=== PATIENT | female | born 1980 | race Hispanic/Latino ===

== ENCOUNTER 2019-05-04 10:56 | Emergency (ER) | payer SELFPAY ==
[2019-05-04 11:12] VITALS: BP 109/61
--- NOTE | 2019-05-04 11:29 | Emergency Department Report ---
ED ENT HPI - General Chief complaint: Dental/Oral Stated complaint: FACE SWOLLEN/PAIN Time Seen by Provider: 05/04/19 11:25 Source: patient Mode of arrival: Ambulatory Limitations: No Limitations - History of Present Illness Initial comments: This is a 38-year-old female nontoxic well in appearance with no signs of distress presents to the ED with complaint of toothache. Patient denies any facial swelling. Denies following up with a dentist. Denies any fever, chills, headache, nausea, vomiting, chest pain or SOB. Denies any other complaints. De nies any allergies. MD complaint: tooth pain -: days(s) Location: tooth # 1 - pain Severity: mild Severity scale (0 -10): 8 Quality: aching Consistency: constant Improves with: none Worsens with: none Context- Dental: history of dental caries, poor dental care Associated Symptoms: gum swelling, toothache. denies: fever, cough, pain with swallowing, sore throat, tinnitus, hearing loss, discharge from ear, rhinorrhea - Related Data Previous Rx's Medication Instructions Recorded Last Taken Type Acetaminophen/Codeine [Tylenol 1 tab PO Q6H PRN #12 tab 05/04/19 Unknown Rx /Codeine # 3 tab] Clindamycin [Clindamycin CAP] 300 mg PO Q8H #21 cap 05/04/19 Unknown Rx Allergies Allergy/AdvReac Type Severity Reaction Status Date / Time No Known Allergies Allergy Unverified 05/04/19 11:13 ED Dental HPI - General Chief complaint: Dental/Oral Stated complaint: FACE SWOLLEN/PAIN Time Seen by Provider: 05/04/19 11:25 Source: patient Mode of arrival: Ambulatory Limitations: No Limitations - Related Data Previous Rx's Medication Instructions Recorded Last Taken Type Acetaminophen/Codeine [Tylenol 1 tab PO Q6H PRN #12 tab 05/04/19 Unknown Rx /Codeine # 3 tab] Clindamycin [Clindamycin CAP] 300 mg PO Q8H #21 cap 05/04/19 Unknown Rx Allergies Allergy/AdvReac Type Severity Reaction Status Date / Time No Known Allergies Allergy Unverified 05/04/19 11:13 ED Review of Systems ROS: Stated complaint: FACE SWOLLEN/PAIN Other details as noted in HPI Constitutional: denies: chills, fever Eyes: denies: eye pain, eye discharge, vision change ENT: dental pain. denies: ear pain, throat pain Respiratory: denies: cough, shortness of breath, wheezing Cardiovascular: denies: chest pain, palpitations Endocrine: no symptoms reported Gastrointestinal: denies: abdominal pain, nausea, diarrhea Genitourinary: denies: urgency, dysuria, discharge Musculoskeletal: denies: back pain, joint swelling, arthralgia Skin: denies: rash, lesions Neurological: denies: headache, weakness, paresthesias Psychiatric: denies: anxiety, depression Hematological/Lymphatic: denies: easy bleeding, easy bruising ED Past Medical Hx - Past Medical History Previous Medical History?: No - Surgical History Past Surgical History?: No - Social History Smoking Status: Current Every Day Smoker Substance Use Type: None - Medications Home Medications: Home Medications Medication Instructions Recorded Confirmed Last Taken Type Acetaminophen/Codeine [Tylenol 1 tab PO Q6H PRN #12 tab 05/04/19 Unknown Rx /Codeine # 3 tab] Clindamycin [Clindamycin CAP] 300 mg PO Q8H #21 cap 05/04/19 Unknown Rx ED Physical Exam - General Limitations: No Limitations General appearance: alert, in no apparent distress - Head Head exam: Present: atraumatic, normocephalic - Expanded ENT Exam Expanded Ear exam: Present: normal external inspection Mouth exam: Present: normal external inspection. Absent: drooling, trismus, muffled voice Teeth exam: Present: dental caries, fractured tooth #, dental tenderness #, gingival enlargement, other (no facial swelling. no abscess) Throat exam: Positive: normal inspection. Negative: tonsillar erythema, tonsillomegaly, tonsillar exudate, R peritonsillar mass, L peritonsillar mass - Neck Neck exam: Present: normal inspection, full ROM. Absent: tenderness, meningismus, lymphadenopathy - Extremities Exam Extremities exam: Present: normal inspection, full ROM - Back Exam Back exam: Present: normal inspection, full ROM - Neurological Exam Neurological exam: Present: alert, oriented X3, normal gait - Psychiatric Psychiatric exam: Present: normal affect, normal mood - Skin Skin exam: Present: warm, dry, intact, normal color. Absent: rash ED Course Vital Signs 05/04/19 11:11 Temperature 98.8 F Pulse Rate 90 Respiratory 18 Rate Blood Pressure 109/61 O2 Sat by Pulse 100 Oximetry - Reevaluation(s) Reevaluation #1: 05/04/19 11:26 Patient is speaking in full sentences with no signs of distress noted. ED Medical Decision Making - Medical Decision Making Patient was instructed to Follow-up with a dentist doctor in 3-5 days or if symptoms worsen and continue return to emergency room as soon as possible. At time of discharge, the patient does not seem toxic or ill in appearance. No acute signs of distress noted. Patient agrees to discharge treatment plan of care. No further questions noted by the patient. Critical care attestation.: If time is entered above; I have spent that time in minutes in the direct care of this critically ill patient, excluding procedure time. ED Disposition Clinical Impression: Dental caries, Gingivitis Disposition: TO HOME OR SELFCARE Is pt being admited?: No Does the pt Need Aspirin: No Condition: Stable Instructions: Dental Caries (ED), Gingivitis (ED), Acetaminophen/Codeine (By mouth) Additional Instructions: Follow-up with a dentist doctor in 3-5 days or if symptoms worsen and continue return to emergency room as soon as possible. Prescriptions: Clindamycin [Clindamycin CAP] 300 mg PO Q8H #21 cap Acetaminophen/Codeine [Tylenol /Codeine # 3 tab] 1 tab PO Q6H PRN #12 tab PRN Reason: Pain , Severe (7-10) [facility] [Primary Care Provider[facility] - 3-5 Days PRIMARY MD FREYA [Referring] - 3-5 Days EDISON CARBALLO MD [Staff Physician] - 3-5 Days [facility] [Outside] - 3-5 Days [facility] [Outside] - 3-5 Days Forms: Work/School Release Form(ED)
[2019-05-04] MEDS ORDERED: TYLENOL #3 ONE (11:36)
[2019-05-04] MEDS ORDERED: TYLENOL #3 PO ONE (11:38)
== END 2019-05-04 11:40 | disposition home or self-care (01) ==
LOC: ED 10:56
DX: K02.9 Dental caries, unspecified (principal); K05.10 Chronic gingivitis, plaque induced; F17.200 Nicotine dependence, unspecified, uncomplicated; Z79.899 Other long term (current) drug therapy
CPT/HCPCS: 99282

== ENCOUNTER 2019-05-06 16:15 | Emergency (ER) | payer SELFPAY ==
--- NOTE | 2019-05-06 16:32 | Event Note ---
ED Screening Note ED Screening Note: dental pain here 48 hours ago This initial assessment/diagnostic orders/clinical plan/treatment(s) is/are s ubject to change based on patients health status, clinical progression and re- assessment by fellow clinical providers in the ED. Further treatment and workup at subsequent clinical providers discretion. Patient/guardian urged not to elope from the ED as their condition may be serious if not clinically assessed and managed. Initial orders include: ro abscess
[2019-05-06 16:58] LABS: Hematocrit 37.6 % (30.3-42.9); Hemoglobin 12.9 gm/dl (10.1-14.3); Mean Corpuscular HGB Conc 34 % (30-34); Mean Corpuscular Volume 98 fl (79-97); Platelet Count 309 K/mm3 (140-440); Red Blood Count 3.86 M/mm3 (3.65-5.03); Red Cell Distribution Width 12.5 % (13.2-15.2)
[2019-05-06 17:01] LABS: HCG Qualitative,Urine Negative (Negative)
[2019-05-06 17:03] LABS: Bilirubin,Urine NEG (Negative); Blood,Urine NEG (Negative); Color,Urine Yellow (Yellow); Protein,Urine <15 mg/dL mg/dL (Negative); Urobilinogen,Urine < 2.0 mg/dL (<2.0)
[2019-05-06 17:12] LABS: BUN/Creatinine Ratio 16; Blood Urea Nitrogen 11 mg/dL (7-17); Calcium 9.4 mg/dL (8.4-10.2); Hemolysis Index 4
[2019-05-06] MEDS ORDERED: NORCO 7.5/325 PO ONE (17:51)
--- NOTE | 2019-05-06 17:52 | Emergency Department Report ---
ED ENT HPI - General Chief complaint: Dental/Oral Stated complaint: JAW SWELLING /PAIN Time Seen by Provider: 05/06/19 16:31 Source: patient Mode of arrival: Ambulatory Limitations: No Limitations - History of Present Illness Initial comments: This is a 38-year-old female who presents to the emergency room with worsening dental pain. Patient states she was seen in this emergency room 2 days ago and started on antibiotics and pain medication with no improvement of symptoms. She was given a list of emergency dental clinics and unsuccessful with scheduling an appointment. She reports dental swelling around numbers 30 and 31 with worsening pain. She denies difficulty swallowing, drooling, or fever. MD complaint: tooth pain Onset/Timin -: week(s) Location: tooth # (30 & 31) Severity: severe Severity scale (0 -10): 10 Quality: stabbing, constant Consistency: constant Improves with: none Worsens with: eating Context- Dental: history of dental caries, poor dental care Associated Symptoms: gum swelling, toothache. denies: fever, cough, pain with swallowing, sore throat, tinnitus, hearing loss, discharge from ear, rhinorrhea - Related Data Previous Rx's Medication Instructions Recorded Last Taken Type Acetaminophen/Codeine [Tylenol 1 tab PO Q6H PRN #12 tab 05/04/19 Unknown Rx /Codeine # 3 tab] Clindamycin [Clindamycin CAP] 300 mg PO Q8H #21 cap 05/04/19 Unknown Rx Allergies Allergy/AdvReac Type Severity Reaction Status Date / Time No Known Allergies Allergy Verified 05/06/19 16:33 ED Dental HPI - General Chief complaint: Dental/Oral Stated complaint: JAW SWELLING /PAIN Time Seen by Provider: 05/06/19 16:31 Source: patient Mode of arrival: Ambulatory Limitations: No Limitations - Related Data Previous Rx's Medication Instructions Recorded Last Taken Type Acetaminophen/Codeine [Tylenol 1 tab PO Q6H PRN #12 tab 05/04/19 Unknown Rx /Codeine # 3 tab] Clindamycin [Clindamycin CAP] 300 mg PO Q8H #21 cap 05/04/19 Unknown Rx Allergies Allergy/AdvReac Type Severity Reaction Status Date / Time No Known Allergies Allergy Verified 05/06/19 16:33 ED Review of Systems ROS: Stated complaint: JAW SWELLING /PAIN Other details as noted in HPI Constitutional: denies: chills, fever ENT: dental pain. denies: ear pain, throat pain Respiratory: denies: cough, shortness of breath, wheezing Cardiovascular: denies: chest pain, palpitations Gastrointestinal: denies: abdominal pain, nausea, diarrhea Neurological: denies: headache, weakness, paresthesias Psychiatric: denies: anxiety, depression ED Past Medical Hx - Past Medical History Previous Medical History?: No - Surgical History Past Surgical History?: No - Social History Smoking Status: Current Every Day Smoker Substance Use Type: None - Medications Home Medications: Home Medications Medication Instructions Recorded Confirmed Last Taken Type Acetaminophen/Codeine [Tylenol 1 tab PO Q6H PRN #12 tab 05/04/19 Unknown Rx /Codeine # 3 tab] Clindamycin [Clindamycin CAP] 300 mg PO Q8H #21 cap 05/04/19 Unknown Rx ED Physical Exam - General Limitations: No Limitations General appearance: alert, in no apparent distress - ENT ENT exam: Present: normal orophraynx, mucous membranes moist, TM's normal bilaterally, normal external ear exam - Expanded ENT Exam Expanded Mouth exam: Present: tongue normal. Absent: drooling, trismus, muffled voice, tongue elevation, laceration Teeth exam: Present: dental caries, fractured tooth # (31), dental tenderness # (#30 and 31), gingival enlargement (palpable cyst pocket) Throat exam: Positive: normal inspection - Respiratory Respiratory exam: Present: normal lung sounds bilaterally. Absent: respiratory distress - Cardiovascular Cardiovascular Exam: Present: regular rate, normal rhythm. Absent: systolic murmur, diastolic murmur, rubs, gallop - GI/Abdominal GI/Abdominal exam: Present: soft, normal bowel sounds - Neurological Exam Neurological exam: Present: alert, oriented X3 - Expanded Neurological Exam Expanded Patient oriented to: Present: person, place, time Speech: Present: fluid speech Cranial nerves: EOM's Intact: Normal, Gag Reflex: Normal, Tongue Deviation: Normal, Nystagmus: Normal, Facial Sensation: Normal, Facial Palsy with Forehead Movement: Normal, Facial Palsy without Forehead Movement: Normal Cerebellar function: Finger to Nose: Normal Best Eye Response ([place]): (4) open spontaneously Best Motor Response ([place]): (6) obeys commands Best Verbal Response ([place]): (5) oriented [place] Total: 15 - Psychiatric Psychiatric exam: Present: normal affect, normal mood - Skin Skin exam: Present: warm, dry, intact, normal color. Absent: rash ED Course Vital Signs 05/06/19 05/06/19 16:30 22:25 Temperature 99.1 F Pulse Rate 88 83 Respiratory 14 20 Rate Blood Pressure 113/58 116/60 [Right] O2 Sat by Pulse 98 96 Oximetry ED Medical Decision Making - Lab Data Result diagrams: 05/06/19 16:41 05/06/19 16:41 Lab Results 05/06/19 05/06/19 05/06/19 Range/Units 16:41 16:41 16:49 WBC 7.8 (4.5-11.0) K/mm3 RBC 3.86 (3.65-5.03) M/mm3 Hgb 12.9 (10.1-14.3) gm/dl Hct 37.6 (30.3-42.9) % MCV 98 H (79-97) fl MCH 34 H (28-32) pg MCHC 34 (30-34) % RDW 12.5 L (13.2-15.2) % Plt Count 309 (140-440) K/mm3 Sodium 146 H (137-145) mmol/L Potassium 4.1 (3.6-5.0) mmol/L Chloride 104.1 (98-107) mmol/L Carbon Dioxide 30 (22-30) mmol/L Anion Gap 16 mmol/L BUN 11 (7-17) mg/dL Creatinine 0.7 (0.7-1.2) mg/dL Estimated GFR > 60 ml/min BUN/Creatinine Ratio 16 % Glucose 95 (65-100) mg/dL Calcium 9.4 (8.4-10.2) mg/dL Urine Color Yellow (Yellow) Urine Turbidity Clear (Clear) Urine pH 5.0 (5.0-7.0) Ur Specific [place] 1.015 (1.003-1.030) Urine Protein <15 mg/dl (Negative) mg/dL Urine Glucose (UA) Neg (Negative) mg/dL Urine Ketones Neg (Negative) mg/dL Urine Blood Neg (Negative) Urine Nitrite Neg (Negative) Ur Reducing Substances Not Reportable Urine Bilirubin Neg (Negative) Urine Ictotest Not Reportable Urine Urobilinogen < 2.0 (<2.0) mg/dL Ur Leukocyte Esterase Tr (Negative) Urine WBC (Auto) 1.0 (0.0-6.0) /HPF Urine RBC (Auto) 3.0 (0.0-6.0) /HPF U Epithel Cells (Auto) 10.0 (0-13.0) /HPF Urine HCG, Qual Negative (Negative) - Radiology Data Radiology results: report reviewed CT maxillofacial without contrast CLINICAL HISTORY: Right facial pain for 5 days. FINDINGS: No previous exams available for comparison. There is lucency surrounding the root of the anterior right mandibular molar tooth with defect of the lateral cortex. Furthermore, there is de creased attenuation within the adjacent soft tissues measure approximately 0.7 cm transverse by 1.0 cm AP in greatest dimensions. The findings would be a concerning for developing odontogenic abscess on this noncontrast study at. Milder inflammatory changes are seen within the more superficial soft tissues. The paranasal sinuses are pneumatized. The nasal septum is essentially midline at. No significant post septal inflammatory changes are seen involving the orbits. The visualized mastoid air cells are clear. All CT scans at this location are performed using the CT dose reduction for ALARA by means of automated exposure control. IMPRESSION: There is lucency surrounding the anterior right mandibular molar tooth with defect of the lateral cortex and decreased attenuation involving the adjacent soft tissues. The findings would be concerning for developing odontogenic abscess as detailed above. - Medical Decision Making Patient is stable and was examined by me. Patient was seen in this emergency room 2 days ago started on antibiotics and pain medication for dental pain. Giv en norco once in ER. Obtain CT of facial bones. There is lucency surrounding the anterior right mandibular molar tooth with defect of the lateral cortex and decreased attenuation involving the adjacent soft tissues. The findings would be concerning for developing odontogenic abscess as detailed a jonathon. Dental abscess drained, review note. Referral to dentist for follow-up. Struck transit continue to prescribe pain medication, mouthwash, and antibiotics from 2 days ago. Discharged home stable. Critical care attestation.: If time is entered above; I have spent that time in minutes in the direct care of this critically ill patient, excluding procedure time. ED Disposition Clinical Impression: Dental caries, Dental abscess Disposition: DC- TO HOME OR SELFCARE Is pt being admited?: No Does the pt Need Aspirin: No Condition: Stable Instructions: Dental Abscess (ED) Additional Instructions: Follow-up from a dentist from the referral list below her continued management. Complete antibiotics prescribed on prior visit 2 days ago. He continue to take pain medication prescribed. Referrals: [facility] [Outside] - 3-5 Days [facility] [Outside] - 3-5 Days [facility] [Outside] - 3-5 Days Forms: Work/School Release Form(ED) Time of Disposition: 22:23 I & D Note - I & D Note I & D Note: The area was prepared and draped in the usual, sterile manner. A 18 gauge blunt needle was used to puncture indurated area on #31 and gingival area and the purulent material expressed. Bleeding was minimal. Followup: The patient tolerated the procedure well without complications. Standard post- procedure care was explained and return precautions are given.
--- NOTE | 2019-05-06 21:14 | Cat Scan Report ---
CT maxillofacial without contrast CLINICAL HISTORY: Right facial pain for 5 days. FINDINGS: No previous exams available for comparison. There is lucency surrounding the root of the an terior right mandibular molar tooth with defect of the lateral cortex. Furthermore, there is decrease d attenuation within the adjacent soft tissues measure approximately 0.7 cm transverse by 1.0 cm AP i n greatest dimensions. The findings would be a concerning for developing odontogenic abscess on this noncontrast study at. Milder inflammatory changes are seen within the more superficial soft tissues. The paranasal sinuses are pneumatized. The nasal septum is essentially midline at. No significant pos t septal inflammatory changes are seen involving the orbits. The visualized mastoid air cells are selene ar. All CT scans at this location are performed using the CT dose reduction for ALARA by means of aut omated exposure control. IMPRESSION: There is lucency surrounding the anterior right mandibular molar tooth with defect of the lateral cor leon and decreased attenuation involving the adjacent soft tissues. The findings would be concerning f or developing odontogenic abscess as detailed above. Signer Name: Jimenez Griffin MD Signed: 05/06/2019 9:10 PM Workstation Name: [id number]
[2019-05-06] MEDS ORDERED: XANAX PO ONE (21:39)
[2019-05-06 22:55] VITALS: BP 116/60
== END 2019-05-06 22:25 | disposition home or self-care (01) ==
LOC: ED 16:15
DX: K04.7 Periapical abscess without sinus (principal); K02.9 Dental caries, unspecified; F17.200 Nicotine dependence, unspecified, uncomplicated
CPT/HCPCS: 36415; 70486; 80048; 81001; 81025; 85027; 99284